=== PATIENT | male | born 1955 | race Caucasian/White ===

== ENCOUNTER 2017-11-07 04:58 | Inpatient (IN) | payer OTHER ==
[2017-11-07] MEDS: FUROSEMIDE 40 MG INJ IV ×2 (06:01→17:11)
[2017-11-07] MEDS: ONDANSETRON 4 MG INJ IV (06:01)
[2017-11-07] MEDS: morphine 4 MG/ML VIAL IV (06:02)
[2017-11-07 06:03] LABS: ADD MAN DIFF? NO
[2017-11-07 06:10] LABS: BASOPHIL # 0.1 10^3/ul (0.0-0.1); BASOPHILS % 0.6 % (0.0-2.0); EOSINOPHILS # 0.3 10^3/ul (0.0-0.5); EOSINOPHILS % 3.9 % (0.0-7.0); HEMATOCRIT 37.8 % (42.0-52.0); HEMOGLOBIN 12.4 g/dl (14.0-18.0); LYMPHOCYTES # 1.6 10^3/ul (0.8-2.9); LYMPHOCYTES % 19.2 % (15.0-51.0); MEAN CORPUSCULAR HEMOGLOBIN 28.6 pg (29.0-33.0); MEAN CORPUSCULAR HGB CONC 32.8 g/dl (32.0-37.0); MEAN CORPUSCULAR VOLUME 87.1 fl (82.0-101.0); MONOCYTE # 0.7 10^3/ul (0.3-0.9); MONOCYTES % 7.7 % (0.0-11.0); NEUTROPHIL # 5.8 10^3/ul (1.6-7.5); NEUTROPHILS % 68.2 % (39.0-77.0); PLATELET COUNT 226 10^3/UL (140-415); RED BLOOD COUNT 4.34 10^6/ul (4.70-6.10)
[2017-11-07 06:10] LABS: WHITE BLOOD COUNT 8.5 10^3/ul (4.8-10.8)
[2017-11-07 06:47] LABS: ALANINE AMINOTRANSFERASE 44 IU/L (13-69); ALBUMIN 3.7 g/dl (3.3-4.9); ALBUMIN/GLOBULIN RATIO 1.05; ALKALINE PHOSPHATASE 99 IU/L (42-121); ASPARTATE AMINO TRANSFERASE 36 IU/L (15-46); BILIRUBIN,INDIRECT 0.4 mg/dl (0-1.1); BILIRUBIN,TOTAL 0.4 mg/dl (0.2-1.3); BLOOD UREA NITROGEN 34 mg/dl (7-20); CALCIUM 9.1 mg/dl (8.4-10.2); CARBON DIOXIDE 23 mmol/L (21-31); CHLORIDE 107 mmol/L (97-110); GLUCOSE 184 mg/dl (70-220); SODIUM 142 mmol/L (135-144); TOTAL PROTEIN 7.2 g/dl (6.1-8.1)
[2017-11-07 06:59] LABS: B-TYPE NATRIURETIC PEPTIDE 2210 PG/ML (0-125); TROPONIN-I 0.015 ng/ml (0.00-0.12)
[2017-11-07 07:35] LABS: ANION GAP 16 (8-16)
[2017-11-07 07:39] LABS: POTASSIUM 3.8 mmol/L (3.5-5.1)
[2017-11-07 12:39] LABS: CK INDEX 2.3; CREATINE KINASE 154 IU/L (23-200)
[2017-11-07 12:41] LABS: CK-MB 3.49 ng/ml (0.0-2.4); TROPONIN-I < 0.012 ng/ml (0.00-0.12)
[2017-11-07 14:11] LABS: OPIATES Positive (NEGATIVE)
[2017-11-07 14:12] LABS: AMPHETAMINE/METHAMPHETAMINE Positive (NEGATIVE); BARBITURATES Negative (NEGATIVE); BENZODIAZEPINES Negative (NEGATIVE); CANNABINOIDS Negative (NEGATIVE); COCAINE Negative (NEGATIVE)
[2017-11-07] MEDS ORDERED: DILTIAZEM 25 MG INJ IV (16:00)
[2017-11-07] MEDS ORDERED: DEXTROSE 50% 50 ML SYRINGE IV ×2 (16:30)
[2017-11-07] MEDS ORDERED: GLUCOSE GEL 15 GRAM TUBE PO ×2 (16:30)
[2017-11-07] MEDS ORDERED: GLUCOSE GEL 15 GRAM TUBE BUCCAL (16:30)
[2017-11-07] MEDS ORDERED: GLUCAGON 1 MG INJ IM (16:30)
[2017-11-07] MEDS: glipiZIDE 5 MG TAB PO (17:12)
[2017-11-07 17:16] LABS: CREATINE KINASE 117 IU/L (23-200)
[2017-11-07 17:30] LABS: CK INDEX 2.4
[2017-11-07 17:31] LABS: CK-MB 2.77 ng/ml (0.0-2.4); TROPONIN-I < 0.012 ng/ml (0.00-0.12)
[2017-11-07] MEDS: APIXABAN 5 MG TABLET PO (21:50)
[2017-11-07] MEDS: METOPROLOL 50 MG TAB PO (21:52)
[2017-11-08 00:31] LABS: CREATINE KINASE 101 IU/L (23-200)
[2017-11-08 00:42] LABS: CK-MB 1.97 ng/ml (0.0-2.4); TROPONIN-I < 0.012 ng/ml (0.00-0.12)
[2017-11-08 05:50] LABS: ADD MAN DIFF? NO
[2017-11-08] MEDS: FUROSEMIDE 40 MG INJ IV ×2 (05:57→17:30)
[2017-11-08 05:59] LABS: WHITE BLOOD COUNT 6.4 10^3/ul (4.8-10.8)
[2017-11-08 05:59] LABS: BASOPHILS % 0.6 % (0.0-2.0); EOSINOPHILS # 0.3 10^3/ul (0.0-0.5); EOSINOPHILS % 4.4 % (0.0-7.0); HEMOGLOBIN 13.1 g/dl (14.0-18.0); LYMPHOCYTES # 1.5 10^3/ul (0.8-2.9); LYMPHOCYTES % 23.4 % (15.0-51.0); MEAN CORPUSCULAR HEMOGLOBIN 28.6 pg (29.0-33.0); MEAN CORPUSCULAR HGB CONC 33.6 g/dl (32.0-37.0); MEAN CORPUSCULAR VOLUME 85.2 fl (82.0-101.0); MEAN PLATELET VOLUME 10.9 fl (7.4-10.4); MONOCYTE # 0.5 10^3/ul (0.3-0.9); NEUTROPHILS % 63.3 % (39.0-77.0); PLATELET COUNT 209 10^3/UL (140-415); RED BLOOD COUNT 4.58 10^6/ul (4.70-6.10); RED CELL DISTRIBUTION WIDTH 14.6 % (11.5-14.5)
[2017-11-08] MEDS: hydrALAzine 20 MG INJ IV (06:00)
[2017-11-08 06:44] LABS: CK INDEX 2.1; CREATINE KINASE 80 IU/L (23-200); TROPONIN-I 0.013 ng/ml (0.00-0.12)
[2017-11-08 06:48] LABS: CK-MB 1.71 ng/ml (0.0-2.4)
[2017-11-08 06:55] LABS: ALANINE AMINOTRANSFERASE 47 IU/L (13-69); ALBUMIN 3.6 g/dl (3.3-4.9); ALBUMIN/GLOBULIN RATIO 1.24; ALKALINE PHOSPHATASE 100 IU/L (42-121); ANION GAP 14 (8-16); ASPARTATE AMINO TRANSFERASE 28 IU/L (15-46); BILIRUBIN,INDIRECT 0.4 mg/dl (0-1.1); BILIRUBIN,TOTAL 0.4 mg/dl (0.2-1.3); BLOOD UREA NITROGEN 24 mg/dl (7-20); CALCIUM 8.8 mg/dl (8.4-10.2); CARBON DIOXIDE 27 mmol/L (21-31); CHLORIDE 103 mmol/L (97-110); CHOL/HDL RATIO 3.3 RATIO; CREATININE 1.16 mg/dl (0.61-1.24); GLUCOSE 166 mg/dl (70-220); HDL CHOLESTEROL 42 mg/dl (30-78); LDL CHOLESTEROL,CALCULATED 74 mg/dl; MAGNESIUM 1.9 mg/dl (1.7-2.5); POTASSIUM 3.5 mmol/L (3.5-5.1); SODIUM 140 mmol/L (135-144); TOTAL PROTEIN 6.5 g/dl (6.1-8.1); TRIGLYCERIDES 127 mg/dl (0-149)
[2017-11-08 06:55] LABS: CHOLESTEROL 141 mg/dl (100-200)
[2017-11-08 07:12] LABS: AADO2 Arterial 51.6 mmHg (7.0-24.0); Allen Test ACCEPTAB; Arterial Base Excess 2.4 mmol/L (-3.0-3); Arterial Blood Gas Oxygen Sat 97.8 mmHG (95.0-98.0); Arterial COHb 0.3 % (0.0-3.0); Arterial Fraction of Oxyhgb 97.3 % (93.0-99.0); Arterial HCO3 25.9 mmol/L (22.0-26.0); Arterial MetHb 0.2 % (0.0-1.5); Arterial Total Hemglobin 12.4 g/dl (12.0-18.0); Arterial pCO2 36.2 mmhg (35-45); MODE NASAL CANNULA; Site Right Radial
[2017-11-08] MEDS: glipiZIDE 5 MG TAB PO ×2 (07:52→17:12)
[2017-11-08] MEDS: DILTIAZEM (CD) 120 MG CAP PO (09:55)
[2017-11-08] MEDS: METOPROLOL 50 MG TAB PO ×2 (09:55→21:37)
[2017-11-08] MEDS: APIXABAN 5 MG TABLET PO ×2 (09:55→21:36)
[2017-11-08] MEDS: LISINOPRIL 20 MG TAB PO ×2 (09:56→21:36)
[2017-11-08 13:16] LABS: AMPHETAMINE/METHAMPHETAMINE Negative (NEGATIVE)
[2017-11-08 13:18] LABS: BARBITURATES Negative (NEGATIVE); BENZODIAZEPINES Negative (NEGATIVE); CANNABINOIDS Negative (NEGATIVE); COCAINE Negative (NEGATIVE); OPIATES Negative (NEGATIVE)
[2017-11-09 05:46] LABS: ADD MAN DIFF? NO
[2017-11-09 05:53] LABS: BASOPHIL # 0.1 10^3/ul (0.0-0.1); BASOPHILS % 0.8 % (0.0-2.0); EOSINOPHILS # 0.2 10^3/ul (0.0-0.5); EOSINOPHILS % 3.5 % (0.0-7.0); HEMATOCRIT 42.2 % (42.0-52.0); HEMOGLOBIN 14.1 g/dl (14.0-18.0); LYMPHOCYTES # 1.4 10^3/ul (0.8-2.9); LYMPHOCYTES % 21.6 % (15.0-51.0); MEAN CORPUSCULAR HEMOGLOBIN 28.8 pg (29.0-33.0); MEAN CORPUSCULAR HGB CONC 33.4 g/dl (32.0-37.0); MEAN CORPUSCULAR VOLUME 86.3 fl (82.0-101.0); MEAN PLATELET VOLUME 10.7 fl (7.4-10.4); MONOCYTE # 0.6 10^3/ul (0.3-0.9); MONOCYTES % 9.5 % (0.0-11.0); NEUTROPHIL # 4.2 10^3/ul (1.6-7.5); NEUTROPHILS % 64.1 % (39.0-77.0); PLATELET COUNT 208 10^3/UL (140-415); RED BLOOD COUNT 4.89 10^6/ul (4.70-6.10)
[2017-11-09 05:53] LABS: WHITE BLOOD COUNT 6.5 10^3/ul (4.8-10.8)
[2017-11-09] MEDS: FUROSEMIDE 40 MG INJ IV (06:33)
[2017-11-09 06:53] LABS: ALANINE AMINOTRANSFERASE 36 IU/L (13-69); ALBUMIN 3.5 g/dl (3.3-4.9); ALBUMIN/GLOBULIN RATIO 1.12; ALKALINE PHOSPHATASE 90 IU/L (42-121); ANION GAP 12 (8-16); ASPARTATE AMINO TRANSFERASE 28 IU/L (15-46); BILIRUBIN,INDIRECT 0.4 mg/dl (0-1.1); BILIRUBIN,TOTAL 0.4 mg/dl (0.2-1.3); BLOOD UREA NITROGEN 23 mg/dl (7-20); CARBON DIOXIDE 31 mmol/L (21-31); CHLORIDE 99 mmol/L (97-110); CREATININE 1.12 mg/dl (0.61-1.24); GLUCOSE 173 mg/dl (70-220); POTASSIUM 3.7 mmol/L (3.5-5.1); SODIUM 138 mmol/L (135-144); TOTAL PROTEIN 6.6 g/dl (6.1-8.1)
[2017-11-09] MEDS: LISINOPRIL 20 MG TAB PO (08:09)
[2017-11-09] MEDS: APIXABAN 5 MG TABLET PO (08:10)
[2017-11-09] MEDS: METOPROLOL 50 MG TAB PO (08:10)
[2017-11-09] MEDS: glipiZIDE 5 MG TAB PO (08:12)
[2017-11-09] MEDS: DILTIAZEM (CD) 120 MG CAP PO (08:12)
[2017-11-14 02:27] LABS: URINE DRUG SCREEN RESULT DRUG(S) DETECTED:
== END 2017-11-09 12:45 | disposition home or self-care (01) | DRG 291 ==
LOC: E/R 04:58 → MS3 07:22
DX: I13.0 Hypertensive heart and chronic kidney disease with heart failure and stage 1 through stage 4 chronic kidney disease, or unspecified chronic kidney disease (principal); I50.33 Acute on chronic diastolic (congestive) heart failure; N17.9 Acute kidney failure, unspecified; E11.22 Type 2 diabetes mellitus with diabetic chronic kidney disease; I48.2 Chronic atrial fibrillation; F15.10 Other stimulant abuse, uncomplicated; N18.9 Chronic kidney disease, unspecified; E78.5 Hyperlipidemia, unspecified; Z79.4 Long term (current) use of insulin; Z79.01 Long term (current) use of anticoagulants; Z87.891 Personal history of nicotine dependence
CPT/HCPCS: 36415; 36600; 71045; 80053; 80061; 80307; 82550; 82553; 82803; 83735; 83880; 84443; 84484; 85025; 93005; 93306; 96374; 96375; 99285-25

== ENCOUNTER 2019-05-14 03:16 | Emergency (ER) | payer OTHER | END 2019-05-14 05:13 | disposition home or self-care (01) | LOC: FTE 05:13 | DX: R21 Rash and other nonspecific skin eruption (principal); I10 Essential (primary) hypertension; F17.210 Nicotine dependence, cigarettes, uncomplicated; Z79.82 Long term (current) use of aspirin; Z79.84 Long term (current) use of oral hypoglycemic drugs | CPT/HCPCS: 99283; Z7502 ==